=== PATIENT | male | born 1955 | race Caucasian/White ===

== ENCOUNTER 2019-06-20 14:19 | Inpatient (IN) | payer OTHER ==
[~2019-06-20] VITALS: Ht 182.9 cm; Wt 71.7 kg
[2019-06-20 14:22] VITALS: BP 205/108
[2019-06-20 14:46] LABS: ABSOLUTE BASOPHILS 0.1 thou/uL (0.0-0.2); ABSOLUTE LYMPHOCYTES 2.2 thou/uL (0.8-5.3); ABSOLUTE MONOCYTES 0.5 thou/uL (0.0-1.2); ABSOLUTE NEUTROPHILS 9.1 thou/uL (1.6-8.1); BASOPHILS 1.1 %; EOSINOPHILS 0.3 %; HEMATOCRIT 47.1 % (42.0-52.0); HEMOGLOBIN 16.3 gm/dL (14.0-18.0); LYMPHOCYTES 18.2 %; MCHC 34.7 g/dL (28.0-37.0); MCV 92.1 fL (80.0-100.0); MONOCYTES 4.4 %; MPV 7.5 fl. (7.2-11.1); NUCLEATED RBCS 0 /100WBC; PLATELET COUNT* 231 thou/uL (150-400); RBC 5.11 mil/uL (4.50-6.00); RDW-CV 12.8 % (10.5-14.5)
[2019-06-20 14:56] LABS: CALCIUM 8.3 mg/dL (8.5-10.1); CREATININE 1.1 mg/dL (0.6-1.3); POTASSIUM 4.8 mmol/L (3.5-5.1)
[2019-06-20 15:07] LABS: MAGNESIUM 2.1 mg/dL (1.8-2.4); TOTAL BILIRUBIN 0.5 mg/dL (<0.1-1.0); TOTAL PROTEIN 6.8 g/dL (6.4-8.2)
[2019-06-20 15:42] LABS: APTT 28.9 Seconds (25.0-31.3); PROTIME 10.6 Seconds (9.20-11.50)
[2019-06-20 15:51] LABS: CHOLESTEROL 187 mg/dL (<200); HDL CHOLESTEROL 53 mg/dL (>40); LDL CHOLESTEROL 106 mg/dL (<100); TC:HDL 3.5 Ratio (Not establshd); TRIGLYCERIDE 142 mg/dL (<150); VLDL 28 mg/dL (<40)
[2019-06-20 15:52] LABS: SERUM ASSESSMENT Clear
[2019-06-20 16:20] VITALS: BP 157/101
[2019-06-20 16:40] VITALS: BP 195/111
[2019-06-20 16:54] LABS: AMP/METHAMP Negative (Negative); BARBITURATES Negative (Negative); BENZODIAZEPINES Negative (Negative); COCAINE Negative (Negative); METHADONE Negative (Negative); OPIATES Negative (Negative); PCP Negative (Negative); THC Negative (Negative)
--- NOTE | 2019-06-20 19:48 | NUR ---
RECEVIED REPORT FROM RENZO IN THE ER. PT ARRIVED TO TELE FLOOR AROUND 1640. PT A&O X4. ASSIGNMENT EDITOR PLACED. ADMISISON ASSESSMENT, HISTORY AND EDUCATION COMPLETED CHARTED. PT ORIENTED TO ROOM, BED AND CALL LIGHT. PT DENIED PAIN BUT DID SAY CHEST WAS TIGHT. CRITICAL TROPONIN OF 8.[address] RENDON - ORDERS RECEIVED CAN CARRIED OUT. HEPARIN GTT INFUSING PER PROTOCOL. PT SPOKE WITH FAMILY ON HIS CELL PHONE. PT TO BE NPO AFTER MIDNIGHT FOR POSSIBLE CATH IN THE AM. PT CURRENTLY WATCHING TV IN BED. CALL LIGHT IS WITHIN REACH. LOW FALL RISK PRECAUTIONS IN PLACE. HOURLY ROUNDING PERFORMED.
[2019-06-20 20:10] VITALS: BP 124/81
[2019-06-21] VITALS (15 sets, daily range): BP systolic 117–162; BP diastolic 79–99
--- NOTE | 2019-06-21 06:55 | NUR ---
HEPRIN DRIP ADJUSTED AND REDRAW PLACED. ASSESMENT COMPLETEDAS CHARTED.
--- NOTE | 2019-06-21 10:15 | EKG ---
[place] [address] ELECTROCARDIOGRAM REPORT Name: ARNOLDO ALFARO Room: [address] ADM IN M.R.#: [id number] Admission: 06/20/19 Attend Phys: Ed paz Sa Discharge: Date of : 57 Date of Service: 06/20/19 1421 Report #: [id number] THIS REPORT FOR: //name// [facility] ED Test Date: 2019-06-20 Test Time: 14:21:49 Pat Name: ARNOLDO ALFARO Department: Room: [facility] Gender: M [employer] Police Officer: ZEB : 1955 Requested By: Marya Bailey Order Number: [id number] MD: Slim Barry Measurements Intervals [place] Rate: 82 P: 78 AR: 164 QRS: 63 QRSD: 99 T: 54 QT: 409 QTc: 478 Interpretive Statements Sinus rhythm Probable left atrial enlargement Probable septal infarct, old No previous ECG available for comparison Electronically Signed On 06-21-2019 10:13:33 CDT by Slim Barry [email or web address] <ELECTRONICALLY SIGNED> By: Slim Barry MD, [facility] 06/21/19 1013 1421 1421 Slim Barry MD, [facility] /EPI
--- NOTE | 2019-06-21 10:15 | EKG ---
[place] [address] ELECTROCARDIOGRAM REPORT Name: ARNOLDO ALFARO Room: [address] ADM IN M.R.#: [id number] Admission: 06/20/19 Attend Phys: Ed paz Sa Discharge: Date of : 57 Date of Service: 06/20/19 1507 Report #: [id number] THIS REPORT FOR: //name// [facility] ED Test Date: 2019-06-20 Test Time: 15:07:15 Pat Name: ARNOLDO ALFARO Department: Room: [address] Gender: M Tool Filer: ZEB : 1955 Requested By: Marya Bailey Order Number: [id number] Fahad MD: Slim Barry Measurements Intervals [place] Rate: 88 P: 75 [place]: 160 QRS: 60 QRSD: 99 T: 58 QT: 413 QTc: 500 Interpretive Statements Sinus rhythm Atrial premature complexes Probable anteroseptal infarct, old Baseline wander in lead(s) V5 Electronically Signed On 06-21-2019 10:13:52 CDT by Slim Barry [email or web address] <ELECTRONICALLY SIGNED> By: Slim Barry MD, [facility] 06/21/19 1013 1507 1507 Slim Barry MD, [facility] /EPI
--- NOTE | 2019-06-21 12:58 | NUR ---
LUIS called pt friend/ex with no answer. LUIS called pt other contact, presumably his dtr, with no answer. Cath today. Expecting possibly 3 to 4 days hospitalization according to Dr Farah. SW to continue to follow to assist with safe dc planning.
--- NOTE | 2019-06-21 16:38 | CARD ---
[address] [address] CARDIAC CATH REPORT Name: ALFAROARNOLDO STEPHANIE Room: [address] IN ..#: [id number] Admission: 06/20/19 Attend Phys: Ed Camarena Discharge: Date of : 57 Report #: [id number] THIS REPORT FOR: //name// cc: Kevon Mendez MD, Anthony MD ~ APPROVED REPORT Study performed: 06/21/2019 10:05:38 Patient Details Patient Status: In-Patient Room #: 207 The patient is a 63 year-old male Event Personnel Slim Barry Glass Driller, Mirna Amin RN RN, Courtney Miller RN, Karma Redd RTR Monitor, Barney Baldwin INSPECTOR BICYCLE Scrub, Moose Hurtado INSPECTOR BICYCLE Monitor, Chandni Borden dye feeder Performed cath pci and aortic root Indication Chest pain Risk Factors Arterial Hypertension, Peripheral Vascular Disease, Hypercholesterolemia, Tobacco History () Admission/Lab Medications/Medications given during procedure Glycoprotein IllbIlla Inhibitors, Heparin Unfract. Procedure Narrative The patient was brought electively to the Cardiac Catheterization Laboratory and was prepped and draped in a sterile manner. The right wrist was infiltrated with 1% Lidocaine subcutaneous anesthesia. A Slender Glidesheath sheath was inserted into the right radial artery. Coronary angiography was performed using coronary diagnostic catheters. The right coronary system was accessed and visualized with a Diagnostic - JR4 catheter. The left coronary system was accessed and visualized with a Diagnostic - JL4 catheter. The left ventricle was accessed and visualized with a Diagnostic - ANG PIG catheter. Left ventricular/Aortic Valve gradient assessed via catheter pullback. Left ventriculogram was performed in MUNOZ projection. An aortogram of the ascending aorta was performed[place] [address] CARDIAC CATH REPORT Name: ARNOLDO ALFARO Room: [address] IN [facility]#: [id number] Admission: 06/20/19 Attend Phys: Ed Camarena Discharge: Date of : 57 Report #: [id number] deployed with a 6 Fr Vasc-Band Reg 24cm. The patient tolerated the procedure well and there were no complications associated with the procedure. There was no hematoma. Crossing aortic valve required a jr4 catheter and a glide wire. Catheter exchanged for a pigtail catheter. Intraoperative Conscious Sedation Sedation start time: 1104 Case end Time: 1239 Fentanyl 25 mcg Versed 2 mg Fluoro Time: 18.1 minutes Dose: DAP [id number] cGycm2 1635 mGy Contrast Type and Amount: Omnipaque 320 ml Coronary Angiography The patient's coronary anatomy is right dominant. Diagnostic Cath Left Main 0% stenosis LAD 60% mid stenosis Diagonal 2 medium sized with 90% ostial stenosis with slow flow Circumflex 0% stenosis Right Coronary 40% proximal stenosis noted Left Ventriculography The left ventricular ejection fraction is estimated to be 60-65%. Left ventricular wall motion abnormalities are not present. There is no mitral insufficiency. Dilated aortic root noted on aortic root injection with only trace aortic insufficiency Hemodynamics The aortic pressure is 143/73 mmHg with a mean of 96 mmHg. The left ventricular pressure is 159/10 mmHg with a mean of mmHg. The left ventricular end diastolic pressure is 20 mmHg. Pullback from the left ventricle to the aorta revealed a 20 mm gradient across the aortic valve. PCI Technique Lesion Anticoagulation was achieved with Heparin. bolus of iv aggrastat given Percutaneous coronary intervention was performed on the second diagnonal branch segment. The lesion stenosis prior to intervention was 90% with ALEX 2 flow. A 6FR XB 4.5 100CM Guide Catheter was used to engage the lm ostium. A IG: BMW 190cm Interventional Guidewire [place] [address] CARDIAC CATH REPORT Name: ARNOLDO ALFARO Room: [address] IN [facility]#: [id number] Admission: 06/20/19 Attend Phys: Ed Camarena Discharge: Date of : 57 Report #: [id number] BALLOON DILATION A Balloon catheter EUPHORIA 2.0MM X 6 MM was inserted and inflated up to 10.00atm for 14seconds. Repeat angiography revealed the following post-dilatation results: 30% stenosis. Additional Inflation: 10.00atm for 11seconds. Additional Inflation: 10.00atm for 8seconds. Neither XBLAD3.5 nor XBLAD4.0 guide catheter was able to adequately cannulate the left main artery. STENT DEPLOYMENT A drug-eluting stent Torito RX Stent 2.0X12mm was inserted and inflated up to 9.00atm for 16seconds. Repeat angiography revealed the following post-stent deployment results: 0% stenosis. Additional Inflation: 11.00atm for 12seconds. Additional Inflation: 13.00atm for 10seconds. Second BMW wire was placed in the LAD to protect against plaque shift. Final angiography reveals 0 % stenosis with ALEX 3 flow. Conclusion 1. 90% stenosis of the ostium of the second diagonal branch with slow antegrade flow. 2. successful placement of a drug eluting stent in the diagonal branch 3. LVEF 60-65% 4. Dilated aortic root noted Recommendations Refer to Vascular Surgery for repair of the dlated ascending aorta. Medications Administered Clopidogrel <ELECTRONICALLY SIGNED> By: Slim Barry MD, [facility] 06/21/19 1636 1636 1636Slim Barry MD, FAC /INF
--- NOTE | 2019-06-21 18:57 | NUR ---
PT AOX4, VSS, IVF INFUSING. S/P CARDIAC CATH TO R RADIAL. NO HEMATOMA NOTED. R HAND WARM TO TOUCH, CAP REFILL < 3. HOURLY ROUNDING PERFORMED. CALL LIGHT AND PERSONAL BELONGINGS PLACED WITHIN REACH.
[2019-06-22] VITALS: BP 157/97
[2019-06-22 04:00] VITALS: BP 138/72; BP 158/89
[2019-06-22 04:46] LABS: HEMATOCRIT 43.8 % (42.0-52.0); HEMOGLOBIN 15.2 gm/dL (14.0-18.0); MCH 32.4 pg (26.0-34.0); MCHC 34.7 g/dL (28.0-37.0); MCV 93.2 fL (80.0-100.0); MPV 8.1 fl. (7.2-11.1); RBC 4.7 mil/uL (4.50-6.00); RDW-CV 13.3 % (10.5-14.5); WBC 8.2 thou/uL (4.0-11.0)
[2019-06-22 05:21] LABS: POTASSIUM 3.8 mmol/L (3.5-5.1)
[2019-06-22 05:23] LABS: TROPONIN-I LEVEL 4.5 ng/mL (<0.06)
[2019-06-22 08:00] VITALS: BP 157/99; BP 167/92
[2019-06-22] MEDS ORDERED: ASA81BEC PO (10:28)
[2019-06-22] MEDS ORDERED: LIPITOR40 MG PO (10:31)
[2019-06-22] MEDS ORDERED: CARVEDILOL6.25 M1 PO (10:34)
[2019-06-22] MEDS ORDERED: PLAVIX 75 MG TA75 MG PO (10:38)
[2019-06-22] MEDS ORDERED: COZAAR 25 MG TA25 M2 PO (10:40)
[2019-06-22] MEDS ORDERED: NICOTINE TRANSD14 M1 TRANSDERM ×2 (10:42→12:16)
[2019-06-22 10:50] VITALS: BP 157/99
--- NOTE | 2019-06-22 11:08 | EKG ---
[place] [address] ELECTROCARDIOGRAM REPORT Name: ARNOLDO ALFARO Room: [address] ADM IN M.R.#: [id number] Admission: 06/20/19 Attend Phys: Ed paz Sa Discharge: Date of : 57 Date of Service: 06/22/19 0357 Report #: [id number] THIS REPORT FOR: //name// [facility] Test Date: 2019-06-22 Test Time: 03:57:05 Pat Name: ARNOLDO ALFARO Department: Room: [address] Gender: M Material Attendant: : 1955 Requested By: Slim Barry Order Number: [id number] Reading MD: Slim Barry Measurements Intervals [place] Rate: 58 P: 71 [place]: 158 QRS: 75 QRSD: 99 T: 109 QT: 467 QTc: 459 Interpretive Statements Sinus rhythm poor r wave progression Borderline repolarization abnormality Baseline wander in lead(s) I,II,aVR Compared to ECG 06/20/2019 15:07:15 Atrial premature complex(es) no longer present Myocardial infarct finding still present Electronically Signed On 06-22-2019 11:06:14 CDT by Slim Barry [email or web address] <ELECTRONICALLY SIGNED> By: Slim Barry MD, [facility] 06/22/19 1106 0357 0357 Slim Barry MD, [facility] /EPI
[2019-06-22] MEDS ORDERED: NITROSTAT0.4 M1 SUBLING (11:32)
--- NOTE | 2019-06-22 18:21 | NUR ---
PT VSS, SB TO SR ON TELE, ROOM AIR, A&OX4, RIGHT RADIAL CATH SITE CLEAN DRY WITH NO HEMATOMA, UP AD BERNARDINO, HOURLY ROUNDING PERFORMED, POSSESSIONS AND CALL LIGHT WITHIN REACH. REC DISCHARGE ORDERS, REVIEWED WITH PATIENT, TELE MONITOR AND IV REMOVED WITHOUT COMPLICATION, PAPER SCRIPTS AND CARE NOTES GIVEN, QUESTIONS ANSWERED. PT TAKEN IN WHEELCHAIR BY NURSING STAFF TO ED EXIT AND PT GOT IN HIS CAR AND LEFT PARKING LOT.
--- NOTE | 2019-06-24 14:16 | EKG ---
[place] [address] ELECTROCARDIOGRAM REPORT Name: ARNOLDO ALFARO Room: [address] DIS IN M.R.#: [id number] Admission: 06/20/19 Attend Phys: Ed paz Sa Discharge: 06/22/19 Date of : 57 Date of Service: 06/21/19 1239 Report #: [id number] THIS REPORT FOR: //name// [facility] Test Date: 2019-06-21 Test Time: 12:39:52 Pat Name: ARNOLDO ALFARO Department: Room: [address] Gender: M Driver Guard: CONY : 1955 Requested By: Slim Barry Order Number: [id number] Fahad MD: Vito Akins Measurements Intervals [place] Rate: 60 P: 81 [place]: 157 QRS: 84 QRSD: 99 T: 87 QT: 499 QTc: 499 Interpretive Statements Sinus rhythm Borderline right axis deviation Probable anteroseptal infarct, old Minimal ST depression, inferior leads Compared to ECG 06/20/2019 15:07:15 ST (T wave) deviation now present Atrial premature complex(es) no longer present Myocardial infarct finding still present Electronically Signed On 06-24-2019 14:14:53 CDT by Vito Akins [email or web address] <ELECTRONICALLY SIGNED> By: Vito Akins MD, [facility] 06/24/19 1414 1239 1239 Vito Akins MD, [facility] /EPI
--- NOTE | 2019-06-24 14:17 | EKG ---
[place] [address] ELECTROCARDIOGRAM REPORT Name: ARNOLDO ALFARO Room: [address] DIS IN M.R.#: [id number] Admission: 06/20/19 Attend Phys: Ed paz Sa Discharge: 06/22/19 Date of : 57 Date of Service: 06/22/19805 Report #: [id number] THIS REPORT FOR: //name// [facility] Test Date: 2019-06-22 Test Time: 08:06:48 Pat Name: ARNOLDO ALFARO Department: Room: [address] Gender: M Skull Splitter: VIDAL : 1955 Requested By: Ed Farah Order Number: [id number] Fahad MD: Vito Akins Measurements Intervals [place] Rate: 66 P: 75 [place]: 158 QRS: 74 QRSD: 100 T: 131 QT: 475 QTc: 498 Interpretive Statements Sinus rhythm Possible anteroseptal infarct, old Borderline repolarization abnormality Compared to ECG 06/22/2019 03:57:05 Myocardial infarct finding now present Electronically Signed On 06-24-2019 14:15:45 CDT by Vito Akins [email or web address] <ELECTRONICALLY SIGNED> By: Vito Akins MD, [facility] 06/24/19 1415 5 0806 Vito Akins MD, [facility]AC /EPI
== END 2019-06-22 12:20 | disposition home or self-care (01) | DRG 246 ==
LOC: M.ERS 14:19 → M.TBA-ER 15:34 → M.2W 15:34
PROVIDERS: Emergency Medicine Emergency Medical Services; Internal Medicine Cardiovascular Disease; Nurse Practitioner Family; Registered Nurse; ADMIT Family Medicine
PROC: B2151ZZ Fluoroscopy of Left Heart using Low Osmolar Contrast (ICD-10-PCS; principal; 2019-06-21)
PROC: B2111ZZ Fluoroscopy of Multiple Coronary Arteries using Low Osmolar Contrast (ICD-10-PCS; principal; 2019-06-21)
PROC: 4A023N7 Measurement of Cardiac Sampling and Pressure, Left Heart, Percutaneous Approach (ICD-10-PCS; principal; 2019-06-21)
PROC: 027034Z Dilation of Coronary Artery, One Artery with Drug-eluting Intraluminal Device, Percutaneous Approach (ICD-10-PCS; principal; 2019-06-21)
DX: I21.4 Non-ST elevation (NSTEMI) myocardial infarction (principal); I50.33 Acute on chronic diastolic (congestive) heart failure; I16.1 Hypertensive emergency; I11.0 Hypertensive heart disease with heart failure; E78.00 Pure hypercholesterolemia, unspecified; I49.3 Ventricular premature depolarization; I16.0 Hypertensive urgency; E78.5 Hyperlipidemia, unspecified; I71.2 Thoracic aortic aneurysm, without rupture; J44.9 Chronic obstructive pulmonary disease, unspecified; I73.9 Peripheral vascular disease, unspecified; F17.210 Nicotine dependence, cigarettes, uncomplicated; Z82.49 Family history of ischemic heart disease and other diseases of the circulatory system; Z72.89 Other problems related to lifestyle; Z91.14 Patient's other noncompliance with medication regimen

== ENCOUNTER 2020-01-17 22:40 | Inpatient (IN) | payer OTHER ==
[~2020-01-17] VITALS: Ht 182.9 cm; Wt 77.1 kg
[~2020-01-17 22:40] MED LIST: ASA81BEC PO; CARVEDILOL6.25 M1 PO; COZAAR 25 MG TA25 M2 PO; LIPITOR40 MG PO; NICOTINE TRANSD14 M1 TRANSDERM; NITROSTAT0.4 M1 SUBLING; PLAVIX 75 MG TA75 MG PO
[2020-01-17 22:47] VITALS: BP 198/120
[2020-01-17 23:21] LABS: INFLUENZA A ANTIGEN Negative (Negative); INFLUENZA B ANTIGEN Negative (Negative)
[2020-01-17 23:39] LABS: ABSOLUTE BASOPHILS 0.2 thou/uL (0.0-0.2); ABSOLUTE EOSINOPHILS 0.4 thou/uL (0.0-0.7); ABSOLUTE LYMPHOCYTES 3.6 thou/uL (0.8-5.3); ABSOLUTE MONOCYTES 0.8 thou/uL (0.0-1.2); ABSOLUTE NEUTROPHILS 7.4 thou/uL (1.6-8.1); BASOPHILS 1.4 %; EOSINOPHILS 3.3 %; HEMATOCRIT 45.3 % (42.0-52.0); HEMOGLOBIN 15.1 gm/dL (14.0-18.0); LYMPHOCYTES 29.1 %; MCH 30.3 pg (26.0-34.0); MCHC 33.4 g/dL (28.0-37.0); MCV 90.7 fL (80.0-100.0); MONOCYTES 6.8 %; MPV 8.2 fl. (7.2-11.1); NUCLEATED RBCS 0 /100WBC; PLATELET COUNT* 231 thou/uL (150-400); POLYS 59.4 %; RBC 4.99 mil/uL (4.50-6.00); RDW-CV 13.7 % (10.5-14.5); WBC 12.4 thou/uL (4.0-11.0)
[2020-01-17 23:48] LABS: PROTIME 10.4 Seconds (9.20-11.50)
[2020-01-17 23:52] LABS: ALBUMIN 3.5 g/dL (3.4-5.0); CALCIUM 8.7 mg/dL (8.5-10.1); CREATININE 0.8 mg/dL (0.6-1.3); MAGNESIUM 2.2 mg/dL (1.8-2.4); TOTAL BILIRUBIN 0.6 mg/dL (<0.1-1.0); TOTAL PROTEIN 6.6 g/dL (6.4-8.2)
--- NOTE | 2020-01-18 00:35 | NUR ---
REPORT CALLED TO SANJUANA MENSAH ON THE FLOOR; PER DR ECHEVERRIA PT TO REMAIN IN THE ER UNTIL AFTER CT REPORT RESULTS REPORTED; CALL LIGHT WITHIN REACH WILL CONTINUE TO MONITOR.
[2020-01-18 02:30] VITALS: BP 137/88
[2020-01-18 03:15] VITALS: BP 163/104
--- NOTE | 2020-01-18 03:15 | NUR ---
RECEIVED REPORT FROM ER, PT TO ROOM AT 0245. NO ACUTE DISTRESS. O2 ON AT 2L/NC. NO COMPLAINTS VOICED. TELEMETRY APPLIED SHOWING SR. SEE ADMISSION ASSESSMENT AND HX. WILL CONT TO MONITOR AND ASSIST NEEDED.
--- NOTE | 2020-01-18 05:51 | NUR ---
SLEPT WELL WHEN FINALLY ABLE TO SLEEP. TELEMETRY CONT TO SHOW SR. NO COMPLAINTS VOICED.
[2020-01-18 08:00] VITALS: BP 114/76
[2020-01-18 08:34] LABS: CHOLESTEROL 128 mg/dL (<200); HDL CHOLESTEROL 46 mg/dL (>40); LDL CHOLESTEROL 64 mg/dL (<100); TC:HDL 2.8 Ratio (Not establshd); TRIGLYCERIDE 92 mg/dL (<150); VLDL 18 mg/dL (<40)
[2020-01-18 08:36] LABS: SERUM ASSESSMENT Clear
[2020-01-18 09:27] LABS: CALCIUM 8.7 mg/dL (8.5-10.1); POTASSIUM 3.9 mmol/L (3.5-5.1)
[2020-01-18 11:47] VITALS: BP 104/76
--- NOTE | 2020-01-18 15:29 | NUR ---
CM SPOKE TO THE PT TO DISCUSS CM ASSESSMENT. PT A&O, INDPENDENT WITH ADL'S, ACTIVE AND WORKS OUTSIDE THE HOME. PT OWNS 0 DME. PT HAS 0 HX OF HH OR SNF. PATIENT'S INSURANCE STATUS IS LISTED 'PATIENT PAY'. PATIENT INFORMS 'I HAVE INSURANCE, BUT I DONT HAVE THE INFO WITH ME. IT JUST RECENTLY CHANGED AT WORK'. CM INFORME PT OF NEED TO PROVIDE INSURANCE INFO TO BILLING SOON POSSIBLE TO AVOID A BILL AT D/C. PT CURRENTLY ON 2L O2 AND THIS MAY BE A BARRIER TO D/C PLANNING IF THE PT DOES NOT HAVE ACTIVE INSURANCE. CM WILL REMAIN AVAILABLE TO ASSIST AND FOLLOW NEEDED.
[2020-01-18 16:33] VITALS: BP 112/74
--- NOTE | 2020-01-18 18:39 | NUR ---
PT RESTING AT THIS TIME. VSS ON RA. NO C/O PAIN/ PT DOES REOPRT HAS HAD BLOODY SPUTUM. PT GIVEN CUP FOR SAMPLE. PT REPORTS RECENT ANUEURYSM REPAIR ON AORTA.ASSESSMENT CHARTED. PT HAS NO FURTHER NEEDS. CLWR.WCTM
[2020-01-18 19:30] VITALS: BP 121/74
[2020-01-19] VITALS: BP 123/77
--- NOTE | 2020-01-19 03:07 | NUR ---
PT UP MOST OF NIGHT AFTER MEDICATION GIVEN REST AND PAIN, TURNED EVERY 2 HOURS, PT FREQ ON BED IBRAHIM, NO CHANGES IN ASSESSMENT, WILL CONTINUE WITH CURRENT POC.
--- NOTE | 2020-01-19 03:10 | NUR ---
RESTED WELL THROUGHOUT HOURLY ROUNDS COUGH REMAINS, DENIES PAIN OR SOA , NO CHANGES NOTED WITH CURRENT PLAN OF CARE, WILL REORT CHANGES OR ABNORMAL FINDINGS.
--- NOTE | 2020-01-19 03:28 | NUR ---
PT RESTED WELL THROUGHOUT HOURLY ROUNDS, TURN EVERY 2 HOURLY , PT CONTINUEE TO SAY I CANT MOVE, PT ASSISTED TO ADL ADL AND HOLD WATER CUP FOR PT , PT ABLE TO USE CALL LIGHT. NO CHANGES IN PT ASSESSMENT. WILL CONINTUE WITH CURRENT POC.
[2020-01-19 04:00] VITALS: BP 113/70
[2020-01-19 04:07] LABS: CALCIUM 8.4 mg/dL (8.5-10.1); CREATININE 0.9 mg/dL (0.6-1.3); POTASSIUM 3.9 mmol/L (3.5-5.1)
[2020-01-19 04:14] LABS: HEMATOCRIT 38.6 % (42.0-52.0); MCH 30.2 pg (26.0-34.0); MCV 91.4 fL (80.0-100.0); MPV 8.3 fl. (7.2-11.1); RBC 4.22 mil/uL (4.50-6.00); RDW-CV 13.9 % (10.5-14.5); WBC 19.4 thou/uL (4.0-11.0)
[2020-01-19 04:22] LABS: HEMOGLOBIN 12.7 gm/dL (14.0-18.0)
[2020-01-19 08:00] VITALS: BP 118/73
[2020-01-19] MEDS ORDERED: DOXYCYCLINE 10100 MG PO (08:23)
[2020-01-19] MEDS ORDERED: HYDROCHLOROTHIA25 M1 PO (08:23)
[2020-01-19] MEDS ORDERED: PROAIR HFA8.5 GM INH (08:23)
[2020-01-19] MEDS ORDERED: PREDNISONE 20 M20 MG PO (08:23)
[2020-01-19 12:00] VITALS: BP 123/80
--- NOTE | 2020-01-19 12:44 | EKG ---
[place] [address] ELECTROCARDIOGRAM REPORT Name: SALVATORE ALFAROY STEPHANIE Room: [address] ADM IN M.R.#: [id number] Admission: 01/17/20 Attend Phys: Rashaad Cabrera, Discharge: Date of : 57 Date of Service: 01/18/20 0817 Report #: [id number] THIS REPORT FOR: //name// [facility] Test Date: 2020-01-18 Test Time: 08:17:34 Pat Name: ARNOLDO ALFARO Department: Room: [address] Gender: M It Recruiter: MARLENI : 1955 Requested By: Moose Sumner Order Number: [id number] Fahad MD: Godwin Summers Measurements Intervals [place] Rate: 95 P: 83 MD: 165 QRS: 75 QRSD: 91 T: -81 QT: 408 QTc: 513 Interpretive Statements Sinus rhythm Borderline repolarization abnormality Prolonged QT interval Compared to ECG 06/22/2019 08:06:48 Prolonged QT interval now present Myocardial infarct finding no longer present Electronically Signed On 01-19-2020 12:44:09 PROBLEM MANAGER by Godwin Summers [email or web address] <ELECTRONICALLY SIGNED> By: Godwin Summers MD, [facility] 01/19/20 1244 6 6 Godwin Summers MD, FAC /EPI
[2020-01-19 15:51] VITALS: BP 123/80
--- NOTE | 2020-01-20 11:33 | EKG ---
[place] [address] ELECTROCARDIOGRAM REPORT Name: SALVATORE ALFAROY STEPHANIE Room: [address] IN M.R.#: [id number] Admission: 01/17/20 Attend Phys: Rashaad Cabrera, Discharge: 01/19/20 Date of : 57 Date of Service: 01/17/20 2253 Report #: [id number] THIS REPORT FOR: //name// [facility] ED Test Date: 2020-01-17 Test Time: 22:53:04 Pat Name: ARNOLDO ALFARO Department: Room: [facility] [place] Gender: M Roll Panner: BRADLEY : 1955 Requested By: Milly Gray Order Number: [id number] MD: Slim Barry Measurements Intervals [place] Rate: 79 P: 87 MD: 171 QRS: 88 QRSD: 94 T: 12 QT: 442 QTc: 507 Interpretive Statements Sinus rhythm Probable left atrial enlargement Borderline right axis deviation Probable anteroseptal infarct, old Prolonged QT interval Compared to ECG 06/22/2019 08:06:48 Prolonged QT interval now present Myocardial infarct finding still present Electronically Signed On 01-20-2020 11:33:51 SUBSEA ENGINEER by Slim Barry [email or web address] <ELECTRONICALLY SIGNED> By: Slim Barry MD, [facility] 01/20/20 1133 225 Slim Barry MD, [facility] /EPI
--- NOTE | 2020-01-20 11:36 | EKG ---
[place] [address] ELECTROCARDIOGRAM REPORT Name: ARNOLDO ALFARO Room: [address] DIS IN M.R.#: [id number] Admission: 01/17/20 Attend Phys: Rashaad Cabrera, Discharge: 01/19/20 Date of : 57 Date of Service: 01/18/20817 Report #: [id number] THIS REPORT FOR: //name// [facility] Test Date: 2020-01-18 Test Time: 08:18:29 Pat Name: ARNOLDO ALFARO Department: Room: [address] Gender: M Special Certificate Dictator: MARLENI : 1955 Requested By: Rashaad Cabrera Order Number: [id number] Fahad MD: Slim Barry Measurements Intervals [place] Rate: 97 P: 83 [place]: 171 QRS: 75 QRSD: 91 T: QT: 397 QTc: 505 Interpretive Statements Sinus rhythm Borderline repolarization abnormality Prolonged QT interval Compared to ECG 01/18/2020 08:17:34 No significant changes Electronically Signed On 01-20-2020 11:36:37 VENEER LATHE OPERATOR by Slim Barry [email or web address] <ELECTRONICALLY SIGNED> By: Slim Barry MD, [facility] 01/20/20 1136 7 7 Slim Barry MD, [facility] /EPI
--- NOTE | 2020-01-21 07:50 | CON ---
[address] [address] CONSULTATION Name: ANGELINAARNOLDOTeresa BROWN Room: [address] IN M.R.#: [id number] Admission: 01/17/20 Attend Phys: Rashaad Cabrera MD Discharge: 01/19/20 Date of : 57 Report #: [id number] THIS REPORT FOR: //name// cc: Kevon Mendez MD, Anthony MD ~ CARDIOLOGY CONSULT INDICATION: Acute respiratory failure. HISTORY OF PRESENT ILLNESS: The patient is a very pleasant 64-year-old gentleman with a history of coronary artery disease with percutaneous coronary intervention to a second diagonal branch in 06/2019. At that time, he was noted to have a dilated aortic root with aortic insufficiency and underwent aortic root replacement with aortic valve replacement at [facility] this year. The patient follows with Cardiology at . The patient presented to the hospital with acute shortness of breath. In that setting, his troponin was 0.08. EKG showed sinus rhythm with some diffuse ST segment depression. His troponins trended downward. He did not have chest pain. Blood pressure on admission was 198/120. NT-proBNP was modestly elevated at 948. Chest x-ray showed evidence of emphysema without pulmonary vascular congestion. The patient was given breathing treatments as well as treated for his hypertension. Today, his breathing is significantly improved. He is currently without complaint. PAST MEDICAL HISTORY: 1. Coronary artery disease. 2. Status post aortic valve replacement. 3. Status post aortic root repair. 4. Peripheral vascular disease. 5. Chronic obstructive pulmonary disease. 6. Hypertension. 7. Hyperlipidemia. 8. Tonsillectomy remotely. SOCIAL HISTORY: The patient smokes one and a half pack of cigarettes daily. He drinks alcohol moderately. FAMILY HISTORY: Noncontributory. ALLERGIES: None documented. HOME MEDICATIONS: Aspirin 81 mg daily, atorvastatin 40 mg at bedtime, carvedilol 6.25 mg b.i.d., Plavix 75 mg daily, losartan 50 mg daily, Nitrostat [place]ual [place] [address] CONSULTATION Name: ARNOLDO ALFARO Room: [address]#: [id number] Admission: 01/17/20 Attend Phys: Rashaad Cabrera MD Discharge: 01/19/20 Date of : 57 Report #: [id number] REVIEW OF SYSTEMS: A 14-point review of systems as per HPI, otherwise unremarkable. PHYSICAL EXAMINATION: VITAL SIGNS: Blood pressure presently 104/76, pulse 97 and regular. GENERAL: This is a pleasant gentleman in no distress. Mood and affect appropriate. HEENT: The patient is wearing glasses. Extraocular muscles intact. Mucous membranes are moist. NECK: Shows no jugular venous distention. I do not appreciate a bruit. CHEST: Reveals diminished breath sounds throughout without wheezes or rales. CARDIOVASCULAR: Reveals a regular rhythm without gallop. I do not appreciate significant murmur. ABDOMEN: Reveals normal bowel sounds. The abdomen is soft and nontender. EXTREMITIES: Shows no edema. SKIN: Dry. LABORATORY DATA: A 12-lead EKG shows sinus rhythm with diffuse ST segment depression. Chest x-ray shows right middle lobe infiltrate, possibly consistent with pneumonia. IMPRESSION AND RECOMMENDATIONS: 1. Acute respiratory failure: Breathing status improved after breathing treatments and control of blood pressure. I believe this is multifactorial and in part due to chronic obstructive pulmonary disease as well as acute diastolic heart failure. The patient has improved with control of his blood pressure and breathing treatments. 2. Acute diastolic heart failure, improved with diuretic. The patient's blood pressure is now well controlled. 3. Chronic obstructive pulmonary disease exacerbation, improved. 4. Minimally elevated troponin, likely due to cardiac strain. I do not plan further evaluation at this time. 5. Hypertension. Blood pressure significantly improved with the addition of hydrochlorothiazide. We will continue current doses of carvedilol, losartan and hydrochlorothiazide. The patient appears stable from a cardiac standpoint. We will follow as needed. <ELECTRONICALLY SIGNED> By: Godwin Summers MD, [facility]ACC 01/21/20 0750 1440 192Godwin Summers MD, FACC /nt
== END 2020-01-19 18:55 | disposition home or self-care (01) | DRG 196 ==
LOC: M.ERS 22:40 → M.TBA-ER 23:54 → M.2W 01-18 00:20
PROVIDERS: Emergency Medicine; Internal Medicine; ADMIT Internal Medicine; ATTEND Internal Medicine
DX: J84.89 Other specified interstitial pulmonary diseases (principal); J96.01 Acute respiratory failure with hypoxia; I21.A1 Myocardial infarction type 2; I50.31 Acute diastolic (congestive) heart failure; R65.10 Systemic inflammatory response syndrome (SIRS) of non-infectious origin without acute organ dysfunction; J44.1 Chronic obstructive pulmonary disease with (acute) exacerbation; J44.0 Chronic obstructive pulmonary disease with (acute) lower respiratory infection; R04.2 Hemoptysis; I16.1 Hypertensive emergency; E78.5 Hyperlipidemia, unspecified; I25.10 Atherosclerotic heart disease of native coronary artery without angina pectoris; I73.9 Peripheral vascular disease, unspecified; E78.00 Pure hypercholesterolemia, unspecified; I11.0 Hypertensive heart disease with heart failure; F17.210 Nicotine dependence, cigarettes, uncomplicated; Z20.828 Contact with and (suspected) exposure to other viral communicable diseases; Z79.01 Long term (current) use of anticoagulants; Z72.89 Other problems related to lifestyle; Z79.82 Long term (current) use of aspirin; Z79.899 Other long term (current) drug therapy; Z23 Encounter for immunization